=== PATIENT | male | born 1990 | race Caucasian/White ===

== ENCOUNTER 2024-12-02 08:01 | Outpatient (CLI) | payer MEDICARE, OTHER ==
[~2024-12-02 08:01] MED LIST: NO HOME MEDS
== END 2024-12-02 23:59 | disposition home or self-care (01) ==
LOC: RAD 08:01
PROVIDERS: ATTEND Family Medicine
DX: E04.1 Nontoxic single thyroid nodule (principal); R53.83 Other fatigue
CPT/HCPCS: 76536